=== PATIENT | male | born 1990 | race Two or more races ===

== ENCOUNTER 2016-12-17 16:50 | Emergency (ER) | payer OTHER ==
[~2016-12-17] VITALS: Ht 170.2 cm; Wt 71.7 kg
[2016-12-17 16:58] VITALS: BP 122/79
[2016-12-17] MEDS ORDERED: Bacitracin Oint UD TOPIC ONE (17:30)
[2016-12-17] MEDS ORDERED: TdaP Vaccine 0.5ml Syr IM ONE (17:30)
[2016-12-17] MEDS ORDERED: Lidocaine 1% MPF 10mg/ml 5ml INJ ONE (17:30)
--- NOTE | 2016-12-17 18:20 | Emergency Room Report ---
History of Present Illness General Chief Complaint: Laceration Source: Patient Present Illness HPI The patient is a 26-year-old male presenting for laceration he sustained to his right hand at work today. 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 The patient noticed immediate pain and bleeding. Pain is described as a 5/10 dull ache it does not radiate from the index finger. The patient denies numbness or tingling to this area. Patient denies prior injury. The patient denies other symptoms including N, V, F, chills, dizziness Allergies: Coded Allergies: No Known Allergies (Unverified , 12/17/16) Patient History Past Medical History: see triage record Pertinent Family History: none Reviewed Nursing Documentation: PMH: Agreed, PSxH: Agreed Nursing Documentation-PMH Past Medical History: No Stated History Review of Systems All Other Systems: negative except mentioned in HPI Physical Exam Vital Signs Date Time Temp Pulse Resp B/P Pulse Ox O2 Delivery O2 Flow Rate FiO2 12/17/16 16:58 98.1 74 14 122/79 99 Room Air Sp02 EP Interpretation: reviewed, normal General Appearance: no apparent distress, alert, GCS 15, non-toxic Head: normocephalic, atraumatic Eyes: bilateral eye PERRL, bilateral eye normal inspection Musculoskeletal: normal range of motion, tender - TTP over R distal index finger Neurologic: alert, oriented x3, responsive, motor strength/tone normal, sensory intact, speech normal Psychiatric: judgement/insight normal, memory normal, mood/affect normal, no suicidal/homicidal ideation Skin: no rash, warm/dry, well hydrated, laceration - 3cm linear laceration to R distal lateral index finger Lymphatic: no adenopathy Procedures Splinting Splinting : Consent: Verbal Location: R index finger Pre-Made Type: metal Splint: finger Pre-Proc Neuro Vasc Exam: normal Post-Proc Neuro Vasc Exam: normal Patient Tolerated: Well Complications: None Laceration/Wound Repair Laceration/Wound Repair : Consent: Verbal Wound Location: upper extremity - R index finger Wound's Depth, Shape: superficial Wound Length (cm): 3 Wound Explored: clean Irrigated w/ Saline (ccs): 100 Betadine Prep?: Yes Anesthesia: 1% Lidocaine Volume Anesthetic (ccs): 5 Wound Debrided: minimal Wound Repaired With: sutures Suture Size/Type: 5:0, proline Number of Sutures: 4 Layer Closure?: No Sterile Dressing Applied?: Yes Splint Applied?: Yes Type of Splint Applied: finger Sling Applied?: No Patient Tolerated: Well Complications: None Medical Decision Making PA Attestation Dr. Melton is my supervising physician. Patient management was discussed with my supervising physician Diagnostic Impression: Primary Impression: Hand laceration ER Course The patient is a 26-year-old male presenting for laceration Ddx considered include but not limited to fracture, tendon/ligament injury, avulsion, nerve damage Physical exam: No apparent distress Right hand: There is a 3 cm linear laceration to the lateral second digit from the DIP joint to the distal end. Full active range of motion. Physician intact to light touch. No active bleeding The wound was irrigated with normal saline and cleaned with betadine. A 27g needle was used to administer 5mL of lidocaine without epinephrine for digital block. 4 sutures were placed with 5-0 proline. The wound was well approximated and the patient tolerated the procedure well. The wound was then cleaned and bacitracin was applied. A metal finger splint was applied The patient is given Tdap vaccination The patient is discharged home and will followup with workers compensation. Laceration instructions given. ER precautions are given. Last Vital Signs Date Time Temp Pulse Resp B/P Pulse Ox O2 Delivery O2 Flow Rate FiO2 12/17/16 16:58 98.1 14 122/79 99 Room Air 12/17/16 16:58 74 Status: improved Disposition: HOME, SELF-CARE Condition: Improved Scripts Ibuprofen* (MOTRIN*) 600 Mg Tablet 600 MG ORAL Q8H Y for For Pain, #30 TAB 0 Refills Prov: GILDARDO GUAJARDO 12/17/16 Referrals: NOT CHOSEN [facility]/,REFERRING (PCP) GILDARDO GUAJARDO Dec 17, 2016 18:20
[2016-12-17] MEDS ORDERED: IBUPROFEN600 MG ORAL (18:23)
[2016-12-17 18:31] VITALS: BP 118/75
[2016-12-17 18:33] VITALS: BP 118/75
== END 2016-12-17 18:33 | disposition home or self-care (01) ==
LOC: EMR 17:51
DX: S61.210A Laceration without foreign body of right index finger without damage to nail, initial encounter (principal); Z23 Encounter for immunization; W45.8XXA Other foreign body or object entering through skin, initial encounter; Y93.9 Activity, unspecified; Y92.9 Unspecified place or not applicable
CPT/HCPCS: 29280; 90471; 90715

== ENCOUNTER 2016-12-26 08:23 | Emergency (ER) | payer OTHER ==
[~2016-12-26] VITALS: Ht 170.2 cm; Wt 70.3 kg
[~2016-12-26 08:23] MED LIST: IBUPROFEN600 MG ORAL
[2016-12-26] MEDS ORDERED: NKM (08:37)
[2016-12-26 08:55] VITALS: BP 137/82
--- NOTE | 2016-12-28 08:40 | Emergency Room Report ---
History of Present Illness General Chief Complaint: Wound Recheck/Suture Removal Source: Patient Present Illness HPI Patient for reevaluation of sutures and possible removal Reports his pain is 2/10 has done much better denies any discharge denies any redness He feels area is healing well the area involved is the right index finger Denies any other fevers or chills Allergies: Coded Allergies: No Known Allergies (Unverified , 12/17/16) Patient History Past Medical History: see triage record Pertinent Family History: none Reviewed Nursing Documentation: PMH: Agreed, PSxH: Agreed Nursing Documentation-PMH Past Medical History: No Stated History Review of Systems All Other Systems: negative except mentioned in HPI Physical Exam Vital Signs Date Time Temp Pulse Resp B/P Pulse Ox O2 Delivery O2 Flow Rate FiO2 12/26/16 08:28 97.7 80 18 98 Room Air 12/26/16 08:55 137/82 Sp02 EP Interpretation: reviewed, normal General Appearance: well appearing, no apparent distress Head: normocephalic, atraumatic Eyes: bilateral eye EOMI, bilateral eye PERRL ENT: normal pharynx Neck: supple Musculoskeletal: other - Patient moving digits well without any focal deficit, neurovascularly intact Neurologic: alert, oriented x3 Skin: other - The lacerated area appears to be healing well no obvious dehiscence no erythema Medical Decision Making Diagnostic Impression: Primary Impression: suture removal ER Course Patient had the area cleansed and prepped right index finger Total of 4 sutures were removed individually checking for dehiscence after each removal Patient tolerated the procedure well No obvious dehiscence Condition stable for close outpatient followup Last Vital Signs Date Time Temp Pulse Resp B/P Pulse Ox O2 Delivery O2 Flow Rate FiO2 12/26/16 08:55 97.7 18 98 Room Air 12/26/16 08:55 137/82 12/26/16 08:28 80 Status: improved Disposition: HOME, SELF-CARE Condition: Improved Patient Instructions: Suture Removal, Care After Additional Instructions: Patient is provided with the discharge instructions notified to follow up with primary doctor in the next 2-3 days otherwise return to the er with any worsening symptoms. Please note that this report is being documented using DRAGON technology. This can lead to erroneous entry secondary to incorrect interpretation by the dictating instrument. SO NAYLOR D.O. Dec 28, 2016 08:40
== END 2016-12-26 08:55 | disposition home or self-care (01) ==
LOC: EMR 08:55
DX: S61.210D Laceration without foreign body of right index finger without damage to nail, subsequent encounter (principal); Z48.02 Encounter for removal of sutures
CPT/HCPCS: 99282